=== PATIENT | female | born 1950 | race Caucasian/White ===

== ENCOUNTER 2016-07-06 17:53 | Emergency (ER) | payer MEDICARE, OTHER ==
[~2016-07-06 17:53] MED LIST: ALEVE220 MG PO; ALLEGRA180 PO; ASAB PO; ASMANEX100 INH; FLONASE NAS; LOTE40 PO; NORV5 PO; PROAIR HFA INH; VESICARE10 MG PO; Z-PAK PO
[2016-07-06 18:53] LABS: BASOPHILS 0.2 %; BASOPHILS ABSOLUTE 0.02 10/3/uL (0.0-0.16); EOSINOPHILS 3.4 %; EOSINOPHILS ABSOLUTE 0.31 10/3/uL (0.0-0.53); ER CBC TAT 0 Hrs 05 Mins; HEMOGLOBIN 14.1 g/dL (12.0-16.0); IMMATURE GRANULOCYTES 0.2 %; IMMATURE GRANULOCYTES ABSOLUTE 0.02 10/3/uL (0.0-0.11); LYMPHOCYTES 19.3 %; LYMPHOCYTES ABSOLUTE 1.78 10/3/uL (0.67-4.30); MEAN CORPUS HGB CONC 34.4 g/dL (32.0-36.0); MEAN CORPUSCULAR HEMOGLOB 31.8 pg (26.0-34.0); MEAN CORPUSCULAR VOLUME 92.6 fL (80-100); MEAN PLATELET VOLUME 9.2 fL (9.2-13.0); MONOCYTES 5.8 %; MONOCYTES ABSOLUTE 0.53 10/3/uL (0.21-1.20); NEUTROPHILS 71.1 %; NEUTROPHILS ABSOLUTE 6.54 10/3/uL (2.02-8.40); PLATELET COUNT 249 10/3/uL (150-400); RBC DISTRIBUTION WIDTH 12.9 % (12.0-16.0); RED CELL COUNT 4.43 10/6/uL (4.0-5.6); WHITE BLOOD CELLS 9.2 10/3/uL (4.5-10.5)
[2016-07-06 18:54] LABS: MANUAL DIFF NO %
[2016-07-06 19:08] LABS: CHLORIDE, SERUM 102 MMOL/L (96-112); CO2 (CARBON DIOXIDE) 26 MMOL/L (24-34); CREATININE 0.52 MG/DL (0.55-1.02); GFR AFRICAN AMERICAN 116 ML/MIN (>=60); GFR NON AFRICAN AMERICAN 100 ML/MIN (>=60); POTASSIUM, SERUM 3.8 MMOL/L (3.5-5.3); SGOT(AST) 16 U/L (5-40); SGPT(ALT) 16 U/L (5-65); SODIUM, SERUM 137 MMOL/L (135-148); TOTAL BILIRUBIN 0.7 MG/DL (0-1.2); TOTAL PROTEIN 6.6 G/DL (6.0-8.5)
[2016-07-06 19:10] LABS: A/G RATIO 1.1 (0.7-1.9); ALBUMIN 3.5 G/DL (3.5-5.0); ALKALINE PHOSPHATASE 73 U/L (45-117); BUN (BLOOD UREA NITROGEN) 8 MG/DL (6-23); CALCIUM, SERUM 8.5 MG/DL (8.5-10.4); GLOBULIN 3.1 G/DL (2.5-4.1); GLUCOSE, SERUM 101 MG/DL (60-99)
== END 2016-07-06 20:42 | disposition home or self-care (01) ==
LOC: ER 17:53
PROVIDERS: Emergency Medicine
DX: T78.3XXA Angioneurotic edema, initial encounter (principal); R22.0 Localized swelling, mass and lump, head; J45.909 Unspecified asthma, uncomplicated; I10 Essential (primary) hypertension; Z88.2 Allergy status to sulfonamides; Z79.899 Other long term (current) drug therapy; Z79.82 Long term (current) use of aspirin
CPT/HCPCS: 80053; 85025; 96374; 96375; 96376; 99284; J1200; J2930

== ENCOUNTER 2016-07-12 06:28 | Day surgery (SDC) | payer MEDICARE, OTHER ==
[2016-07-10 11:10] LABS: HEMATOCRIT 44.4 % (36.0-48.0); HEMOGLOBIN 15.5 g/dL (12.0-16.0); MEAN CORPUS HGB CONC 34.9 g/dL (32.0-36.0); MEAN CORPUSCULAR HEMOGLOB 32.6 pg (26.0-34.0); MEAN CORPUSCULAR VOLUME 93.3 fL (80-100); MEAN PLATELET VOLUME 9.3 fL (9.2-13.0); RED CELL COUNT 4.76 10/6/uL (4.0-5.6); WHITE BLOOD CELLS 10.8 10/3/uL (4.5-10.5)
[2016-07-10 11:15] LABS: MANUAL DIFF YES %; PLATELET COUNT 340 10/3/uL (150-400)
[2016-07-10 11:30] LABS: BAND NEUTROPHILS 2 %; LYMPHOCYTES 48 %; LYMPHOCYTES ABSOLUTE (CALC) 5.18 10/3/uL (0.67-4.30); MONOCYTES 6 %; MONOCYTES ABSOLUTE (CALC) 0.65 10/3/uL (0.21-1.20); NEUTROPHILS ABSOLUTE (CALC) 4.97 10/3/uL (2.02-8.40); PLATELET ESTIMATE ADQ (ADEQUATE); RBC MORPHOLOGY NORM (NORMAL); SEGMENTED NEUTROPHIL (0) 44 %; TOTAL NUCLEATED CELLS 100
[2016-07-10 11:43] LABS: A/G RATIO 1.2 (0.7-1.9); ALKALINE PHOSPHATASE 81 U/L (45-117); BUN (BLOOD UREA NITROGEN) 12 MG/DL (6-23); CALCIUM, SERUM 9.6 MG/DL (8.5-10.4); CHLORIDE, SERUM 96 MMOL/L (96-112); CO2 (CARBON DIOXIDE) 29 MMOL/L (24-34); CREATININE 0.66 MG/DL (0.55-1.02); GFR AFRICAN AMERICAN 107 ML/MIN (>=60); GFR NON AFRICAN AMERICAN 93 ML/MIN (>=60); GLOBULIN 3.4 G/DL (2.5-4.1); GLUCOSE, SERUM 88 MG/DL (60-99); POTASSIUM, SERUM 4.4 MMOL/L (3.5-5.3); SGOT(AST) 17 U/L (5-40); SGPT(ALT) 22 U/L (5-65); SODIUM, SERUM 135 MMOL/L (135-148); TOTAL BILIRUBIN 0.4 MG/DL (0-1.2); TOTAL PROTEIN 7.4 G/DL (6.0-8.5)
--- NOTE | ~2016-07-12 | OP ---
Record Of Operation [facility] [address] [place]. [address] NAME: JEAN PAUL MARTINEZ : 50 STATUS : [facility] [place] PAT#: [id number] AGE: 65 ADM/REG DATE : 07/12/16 MR#: [id number] REPORT SERV DATE: 07/12/16 DICTATED BY: HEIDI PRINGLE JR. DATE: 07/12/16 REPORT STATUS : Draft TRANSCRIBED BY: MODL DATE: 07/12/16 DATE OF PROCEDURE: REASON FOR SURGERY: This 65-year-old patient presents with the malignancy of the central right breast. It is at the edge of the right areolar and undermines the nipple somewhat. Clear margin is evident enough on ultrasound to a mammogram to allow breast preservation. She has been presented at our weekly breast conference. She does have what appear to be deflated subpectoral saline implants that were placed around the year 2007 is the best I can tell. They appear to be saline implants and minimally evident on mammogram. The risk of increased fibrosis with indwelling implants noted with fibrosis increasing from approximately 10% to 30%. At present, the plan is to leave the implants intact. PREOPERATIVE DIAGNOSIS: Carcinoma of the right breast. POSTOPERATIVE DIAGNOSIS: Carcinoma of the right breast. SURGEON: Heidi Pringle M.D. SURGERIES PERFORMED: [place] node localization followed by right breast segmentectomy and sentinel node resection. DESCRIPTION OF PROCEDURE: The patient was initially injected in the nuclear medicine facility. She was taken to the operating room, and under general anesthesia, a curvilinear incision was made at the 7 o'clock position at the edge of the right areola. Vertical dissection was carried down through the fatty tissue. A 3-dimensional excision measuring 4.5 cm across was taken keeping the palpable lesion center most within the specimen. The nipple and areolar area were undermined, but at a deep position. The specimen was removed and oriented for pathology. Margins appeared clear, although the deep 6 o'clock margin is somewhat close. For this reason, an additional disk measuring 2.5 x 2.5 x 0.5 cm was taken from this margin and oriented for pathology. The wound was irrigated and hemostasis was obtained. The nipple and areolar complex were re-projected using interrupted Monocryl sutures in the deeper plane. The wound was then closed with two layers of Monocryl in the usual fashion. Attention was turned to the right axilla. With the direction with the Gamma probe, a small curvilinear incision was made, and vertical dissection was carried down to singly active spot. A very small lymph node measuring only 4 mm across was removed with activity near 2000 and background count under 50 indicating appropriate resection of the sentinel node. There were no palpable nodes. The wound was irrigated, and hemostasis was obtained. The wound was closed with two layers of Monocryl. The patient tolerated the procedure well without complications. ESTIMATED BLOOD LOSS: 10 mL. Record Of Operation [address] [address] NAME: JEAN PAUL MARTINEZ : 50 STATUS : [facility] [place] PAT#: [id number] AGE: 65 ADM/REG DATE : 07/12/16 MR#: [id number] REPORT SERV DATE: 07/12/16 DICTATED BY: HEIDI PRINGLE JR. DATE: 07/12/16 REPORT STATUS : Draft TRANSCRIBED BY: JOAN DATE: 07/12/16 SPONGE COUNT: Correct. /JOAN Heidi Pringle Jr., M.D. / [id number] CC: Amina Puentes Jr., M.D. [facility]
== END 2016-07-12 13:47 | disposition home or self-care (01) ==
LOC: SDC 06:28
PROVIDERS: Surgery Surgical Oncology
PROC: 07B50ZZ Excision of Right Axillary Lymphatic, Open Approach (ICD-10-PCS; 2016-07-12)
PROC: 0HBT0ZZ Excision of Right Breast, Open Approach (ICD-10-PCS; principal; 2016-07-12 07:45)
DX: C50.911 Malignant neoplasm of unspecified site of right female breast (principal); C77.3 Secondary and unspecified malignant neoplasm of axilla and upper limb lymph nodes; I10 Essential (primary) hypertension; J30.2 Other seasonal allergic rhinitis; Z17.0 Estrogen receptor positive status [ER+]; Z87.891 Personal history of nicotine dependence; Z88.2 Allergy status to sulfonamides; Z88.8 Allergy status to other drugs, medicaments and biological substances; Z79.82 Long term (current) use of aspirin; Z79.2 Long term (current) use of antibiotics; Z79.51 Long term (current) use of inhaled steroids; Z79.899 Other long term (current) drug therapy
CPT/HCPCS: 71020; 78195; 80053; 85025; 88305; 88307; 88341; 88342; 93005; A9541; J0690; J2250; J2405; J3010